=== PATIENT | female | born 1960 | race Caucasian/White ===

== ENCOUNTER 2021-01-20 14:40 | Outpatient (CLI) | payer OTHER, SELFPAY | END 2021-01-20 14:41 | disposition home or self-care (01) | PROVIDERS: Visit Provider Otolaryngology | DX: H91.91 Unspecified hearing loss, right ear (principal); H92.01 Otalgia, right ear | CPT/HCPCS: 92557; 92567 ==

== ENCOUNTER 2021-02-17 12:23 | Outpatient (RCR) | payer OTHER, SELFPAY | END 2021-05-18 23:59 | disposition home or self-care (01) | LOC: CHSAUDIO 12:23 | PROVIDERS: Visit Provider Otolaryngology | DX: H91.91 Unspecified hearing loss, right ear (principal); H92.01 Otalgia, right ear | CPT/HCPCS: 99199 ==

== ENCOUNTER 2021-03-30 11:00 | Outpatient (RCR) | payer OTHER, SELFPAY | END 2021-05-03 23:59 | disposition home or self-care (01) | LOC: ANHBWCAUD 11:00 | PROVIDERS: Visit Provider Otolaryngology | DX: Z46.1 Encounter for fitting and adjustment of hearing aid (principal) | CPT/HCPCS: 99199; V5241; V5257; V5264 ==

== ENCOUNTER 2021-04-28 12:45 | Outpatient (CLI) | payer OTHER, SELFPAY ==
[2021-04-28 13:30] LABS: Influenza Control Valid (Valid)
[2021-04-28 13:31] LABS: SARS-CoV-2 Ag Negative (Negative)
== END 2021-04-28 12:46 | disposition home or self-care (01) ==
PROVIDERS: PCP Family Medicine; Visit Provider Nurse Practitioner Family
DX: R05.9 Cough, unspecified (principal); Z20.822 Contact with and (suspected) exposure to COVID-19
CPT/HCPCS: 87426; 87804; C9803

== ENCOUNTER 2021-10-19 10:48 | Outpatient (RCR) | payer OTHER, SELFPAY | END 2022-01-17 23:59 | disposition home or self-care (01) | LOC: ANHBWCAUD 10:48 | PROVIDERS: PCP Family Medicine; Visit Provider Family Medicine | DX: Z46.1 Encounter for fitting and adjustment of hearing aid (principal) | CPT/HCPCS: 99199 ==

== ENCOUNTER 2022-01-19 13:35 | Outpatient (RCR) | payer OTHER, SELFPAY | END 2022-04-19 23:59 | disposition home or self-care (01) | LOC: CHSAUDIO 13:35 | PROVIDERS: PCP Family Medicine; Visit Provider Family Medicine | DX: Z46.1 Encounter for fitting and adjustment of hearing aid (principal); H91.91 Unspecified hearing loss, right ear; H92.01 Otalgia, right ear | CPT/HCPCS: 99199 ==

== ENCOUNTER 2023-05-01 10:58 | Outpatient (RCR) | payer OTHER, SELFPAY | END 2023-07-30 23:59 | disposition home or self-care (01) | LOC: CHSAUDIO 10:58 | PROVIDERS: PCP Family Medicine; Visit Provider Family Medicine | DX: Z46.1 Encounter for fitting and adjustment of hearing aid (principal) | CPT/HCPCS: 99199 ==

== ENCOUNTER 2023-05-16 11:30 | Outpatient (RCR) | payer OTHER, SELFPAY | END 2023-07-03 23:59 | disposition home or self-care (01) | LOC: ANHBWCAUD 11:30 | PROVIDERS: PCP Family Medicine; Visit Provider Family Medicine | DX: Z46.1 Encounter for fitting and adjustment of hearing aid (principal) | CPT/HCPCS: 99199; V5264 ==